=== PATIENT | male | born 1955 | race Caucasian/White ===

== ENCOUNTER 2020-05-14 06:39 | Day surgery (SDC) | payer MEDICARE, OTHER ==
[2020-05-05 16:29] LABS: BASOPHILS % (AUTO) 0.8 % (0-1); EOSINOPHILS # (AUTO) 0.1 X10'3 (0-0.9); EOSINOPHILS % (AUTO) 1.6 % (0-6); LYMPHOCYTES # (AUTO) 1.5 X10'3 (1.1-4.8); LYMPHOCYTES % (AUTO) 27.2 % (21-51); MEAN CORPUSCULAR HEMOGLOBIN 31.7 PG (27.0-31.0); MEAN CORPUSCULAR HGB CONC 33.9 g/dL (33.0-36.5); MEAN CORPUSCULAR VOLUME 93.4 FL (78-98); MEAN PLATELET VOLUME 8.6 FL (7.4-10.4); MONOCYTES # (AUTO) 0.5 X10'3 (0-0.9); MONOCYTES % (AUTO) 9.9 % (2-12); NEUTROPHILS # (AUTO) 3.3 X10'3 (1.8-7.7); NEUTROPHILS % (AUTO) 60.5 % (42-75); PRE OP HEMATOCRIT 44.2 % (42.0-52.0); PRE OP PLATELET COUNT 168 X10'3 (140-440); RED BLOOD COUNT 4.73 X10'6 (4.70-6.10); RED CELL DISTRIBUTION WIDTH 13.5 % (11.5-14.5)
[2020-05-05 16:44] LABS: ALBUMIN 3.7 G/DL (3.4-5.0); ALKALINE PHOSPHATASE 72 IU/L (46-116); BLOOD UREA NITROGEN 20 MG/DL (7-18); BUN/CREATININE RATIO 20.8 (5.4-32.0); CALCIUM 8.9 MG/DL (8.5-10.1); CHLORIDE 102 MMOL/L (99-107); CREATININE 0.96 MG/DL (0.60-1.10); PRE OP ALT 70 U/L (30-65); PRE OP ANION GAP 10 (8-16); PRE OP AST 29 U/L (10-37); PRE OP BILIRUB, TOTAL 0.4 MG/DL (0.0-1.0); PRE OP SODIUM 138 MMOL/L (135-145); TOTAL CARBON DIOXIDE 25.8 MMOL/L (24-32); TOTAL PROTEIN 7.3 G/DL (6.4-8.2); eGFR 78 ML/MIN
[2020-05-05 16:47] LABS: PRE OP GLUCOSE 308 MG/DL (70-104)
[~2020-05-14] VITALS: Ht 177.8 cm; Wt 113.6 kg
[~2020-05-14 06:39] MED LIST: ASPI-1264 PO; GABA300C PO; GARL1000 PO; GLUC1TAB9 PO; IBUP-48; METF-438 PO; TURM500C4 PO; VITA-332 PO; ceFAZolin 2gm in dextrose, iso 50 ML IV ONE; famotidine 20mg tablet PO ONE; ringers solution, lacted 1,000 ML IV SCH
[2020-05-14] MEDS ORDERED: BUPIVAcaine/PF 2.5mg/ml (0.25%) 10ml vial ONE (06:41)
[2020-05-14 06:45] VITALS: BP 131/81
[2020-05-14] MEDS ORDERED: morphine 2 MG/ML inj. syringe IV PRN (08:35)
[2020-05-14] MEDS ORDERED: proCHLORperazine 10 MG/2 ml inj IV PRN (08:35)
[2020-05-14] MEDS ORDERED: ondansetron/PF 4mg/2ml inj IV PRN (08:35)
[2020-05-14] MEDS ORDERED: ringers solution, lacted 1,000 ML IV SCH (08:35)
[2020-05-14] MEDS ORDERED: meperidine/PF 25mg/ml syringe IV PRN ×3 (08:35)
[2020-05-14] MEDS ORDERED: morphine 4 MG/ML inj SYRINge IV PRN (08:35)
[2020-05-14] MEDS ORDERED: fentaNYL/PF 50MCG/1 ML 2ML syringe ONE (09:03)
[2020-05-14] MEDS ORDERED: LIDOcaine 0.5% (5mg/ml) 50ml vial ONE (09:03)
[2020-05-14] MEDS ORDERED: midazolam 1 mg/ML 2ml injection ONE (09:03)
[2020-05-14 09:30] VITALS: BP 150/99
--- NOTE | 2020-05-14 09:30 | NUR ---
Received from OR via BED, accompanied by Anesthesiologist DR BREAUX and report given by Anesthesiolgist. PATIENT A&OX4, DENIES PAIN, V/S WNL, NEUROVASCULAR CHECKS INTACT, 20G PIV LUE, SCD ON, DRESSING TO RIGHT WRIST CDI ELEVATED WITH ICEBAG APPLIED.
[2020-05-14 09:40] VITALS: BP 146/78
[2020-05-14 09:50] VITALS: BP 135/71
[2020-05-14 10:00] VITALS: BP 138/76
--- NOTE | 2020-05-14 10:00 | NUR ---
PATIENT A&OX4, DENIES PAIN, V/S WNL, NEUROVASCULAR CHECKS INTACT, 20G PIV LUE D/C, SCD OFF, DRESSING TO RIGHT WRIST CDI ELEVATED WITH ICEBAG APPLIED. I HAVE REVIEWED D/C INSTRUCTIONS WITH PATIENT AND FAMILY AND THEY HAVE VERBALIZED UNDERSTANDING. PATIENT D/C HOME WITH ALL BELONGINGS AND FAMILY GAVE TRANSPORT HOME.
== END 2020-05-14 10:00 | disposition home or self-care (01) ==
LOC: PAS 06:39
PROVIDERS: ATTEND Orthopaedic Surgery Hand Surgery
DX: G56.01 Carpal tunnel syndrome, right upper limb (principal); G47.30 Sleep apnea, unspecified; E11.9 Type 2 diabetes mellitus without complications; M13.88 Other specified arthritis, other site; Z98.890 Other specified postprocedural states; Z72.89 Other problems related to lifestyle; Z79.84 Long term (current) use of oral hypoglycemic drugs; Z79.82 Long term (current) use of aspirin; Z79.899 Other long term (current) drug therapy
CPT/HCPCS: 29848; 36415; 80053; 82948; 85025; 87635; 93005; J2001; J2250; J3010; J3490; A4215; A7000; J7120

== ENCOUNTER 2020-06-11 05:20 | Day surgery (SDC) | payer MEDICARE, OTHER ==
[2020-06-04 14:38] LABS: BASOPHILS % (AUTO) 0.7 % (0-1); EOSINOPHILS # (AUTO) 0.1 X10'3 (0-0.9); EOSINOPHILS % (AUTO) 1.2 % (0-6); LYMPHOCYTES # (AUTO) 1.8 X10'3 (1.1-4.8); LYMPHOCYTES % (AUTO) 26.4 % (21-51); MEAN CORPUSCULAR HEMOGLOBIN 31.3 PG (27.0-31.0); MEAN CORPUSCULAR HGB CONC 33.7 g/dL (33.0-36.5); MEAN CORPUSCULAR VOLUME 92.8 FL (78-98); MEAN PLATELET VOLUME 8.3 FL (7.4-10.4); MONOCYTES # (AUTO) 0.7 X10'3 (0-0.9); MONOCYTES % (AUTO) 10.1 % (2-12); NEUTROPHILS # (AUTO) 4.1 X10'3 (1.8-7.7); NEUTROPHILS % (AUTO) 61.6 % (42-75); PRE OP HEMATOCRIT 43.9 % (42.0-52.0); PRE OP HEMOGLOBIN 14.8 g/dL (14.0-17.9); PRE OP PLATELET COUNT 164 X10'3 (140-440); RED BLOOD COUNT 4.73 X10'6 (4.70-6.10); RED CELL DISTRIBUTION WIDTH 13.5 % (11.5-14.5)
[2020-06-04 14:48] LABS: ALBUMIN 3.9 G/DL (3.4-5.0); ALBUMIN/GLOBULIN RATIO 1.1 (1.1-1.5); ALKALINE PHOSPHATASE 71 IU/L (46-116); BLOOD UREA NITROGEN 25 MG/DL (7-18); BUN/CREATININE RATIO 27.2 (5.4-32.0); CALCIUM 9.5 MG/DL (8.5-10.1); CHLORIDE 103 MMOL/L (99-107); CREATININE 0.92 MG/DL (0.60-1.10); PRE OP ALT 59 U/L (30-65); PRE OP ANION GAP 10 (8-16); PRE OP AST 25 U/L (10-37); PRE OP BILIRUB, TOTAL 0.3 MG/DL (0.0-1.0); PRE OP GLUCOSE 191 MG/DL (70-104); PRE OP POTASSIUM 3.9 MMOL/L (3.4-5.1); PRE OP SODIUM 139 MMOL/L (135-145); TOTAL CARBON DIOXIDE 26.4 MMOL/L (24-32); TOTAL PROTEIN 7.6 G/DL (6.4-8.2); eGFR 82 ML/MIN
[~2020-06-11] VITALS: Ht 177.8 cm; Wt 111.1 kg
[~2020-06-11 05:20] MED LIST changes: -ceFAZolin 2gm in dextrose, iso 50 ML IV ONE; -famotidine 20mg tablet PO ONE
[2020-06-11 05:30] VITALS: BP 133/80
[2020-06-11] MEDS ORDERED: cefazolin/dext.iso 2gm/100ml 100 ML IV ONE (05:30)
[2020-06-11] MEDS ORDERED: famotidine 20mg tablet PO ONE (05:30)
[2020-06-11] MEDS ORDERED: BUPIVAcaine/PF 2.5 mg/ml (0.25%) 30ml vial ONE (06:43)
[2020-06-11] MEDS ORDERED: LIDOcaine 0.5% (5mg/ml) 50ml vial ONE (07:30)
[2020-06-11] MEDS ORDERED: fentaNYL/PF 50MCG/1 ML 2ML syringe ONE (07:33)
[2020-06-11] MEDS ORDERED: midazolam 1 mg/ML 2ml injection ONE (07:41)
[2020-06-11 07:53] VITALS: BP 137/85
--- NOTE | 2020-06-11 07:53 | NUR ---
Received from OR via H[facility]CTOR, accompanied by Anesthesiologist and report given by Anesthesiologist. PATIENT IS AWAKE, A&O, V.S. STABLE, DENIES PAIN OR NAUSEA, ON ROOM AIR 96% O2 SAT, ABLE TO MOVE FINGERS ON LEFT HAND, SHAYNE WRAP ON LEFT HAND AND WRIST, CDI, SIDE RAILS UP, WILL MONITOR. Addendum: 06/11/20 at 0806 by Kristy Gooden RN Amended: Links added.
[2020-06-11 08:00] VITALS: BP 130/90
[2020-06-11 08:10] VITALS: BP 127/93
[2020-06-11 08:20] VITALS: BP 122/85
--- NOTE | 2020-06-11 08:23 | NUR ---
PATIENT Sree LINDSAY, DENIES PAIN OR NAUSEA, A&O, D/C'D PIV FROM RIGHT AC, SHAYNE WRAP ON LEFT WRIST AND HAND CDI, TRANSFERRED WITH WHEELCHAIR WITH HIS BELONGINGS AND ICE PACK TO PRIVATE VEHICLE WITH NO INCIDENTS. Addendum: 06/11/20 at 0840 by Kristy Gooden RN Amended: Links added.
== END 2020-06-11 07:23 | disposition home or self-care (01) ==
LOC: PAS 05:20
PROVIDERS: ATTEND Orthopaedic Surgery Hand Surgery
DX: G56.02 Carpal tunnel syndrome, left upper limb (principal)
CPT/HCPCS: 29848; 36415; 80053; 82948; 85025; J2001; J2250; J3010; J3490; U0003; A4215; A6449; A7000; J7120